=== PATIENT | female | born 2000 | race Caucasian/White ===

== ENCOUNTER 2020-01-16 14:07 | Outpatient (CLI) | payer OTHER | END 2020-01-16 14:08 | disposition home or self-care (01) | LOC: COV 14:07 | PROVIDERS: ATTEND Family Medicine | DX: R06.02 Shortness of breath (principal); M79.10 Myalgia, unspecified site; R53.83 Other fatigue; R68.83 Chills (without fever); J02.9 Acute pharyngitis, unspecified; R19.7 Diarrhea, unspecified; R11.2 Nausea with vomiting, unspecified; Z20.828 Contact with and (suspected) exposure to other viral communicable diseases ==

== ENCOUNTER 2021-01-31 14:07 | Outpatient (CLI) | payer OTHER | END 2021-01-31 14:08 | disposition home or self-care (01) | LOC: COV 14:07 | PROVIDERS: ATTEND Family Medicine | DX: Z20.822 Contact with and (suspected) exposure to COVID-19 (principal) ==